=== PATIENT | female | born 1975 | race Hispanic/Latino ===

== ENCOUNTER 2019-03-01 17:51 | Emergency (ER) | payer OTHER ==
[2019-03-01 18:12] VITALS: BP 123/78
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
[2019-03-01] MEDS ORDERED: IBUPROFEN PO ONE (20:27)
[2019-03-01] MEDS ORDERED: IBUPROFEN ONE (20:29)
--- NOTE | 2019-03-01 22:14 | XRay Report ---
PROCEDURE: XR SPINE LUMBOSACRAL 2-3V TECHNIQUE: Lumbar spine radiographs, two views. HISTORY: pain COMPARISONS: None . FINDINGS: Alignment: Normal . Vertebral body heights/Disk spaces: Normal . Fracture(s): None . Facets: Normal . Bone mineralization: Normal . IMPRESSION: Normal Examination . This document is electronically signed by Desmond Lauren MD., Mar 01 2019 10:12:39 PM ET
== END 2019-03-01 22:28 | disposition home or self-care (01) ==
LOC: ED 17:51
DX: S39.012A Strain of muscle, fascia and tendon of lower back, initial encounter (principal); M54.2 Cervicalgia; M25.561 Pain in right knee; Z88.8 Allergy status to other drugs, medicaments and biological substances; M25.562 Pain in left knee; V89.2XXA Person injured in unspecified motor-vehicle accident, traffic, initial encounter; Y93.89 Activity, other specified; Y92.488 Other paved roadways as the place of occurrence of the external cause; Y99.8 Other external cause status
CPT/HCPCS: 72100; 99283